=== PATIENT | female | born 1970 ===

== ENCOUNTER 2017-01-04 16:36 | Emergency (ER) | payer SELFPAY ==
[2017-01-04 17:04] VITALS: RESP 18; TEMP 97.7; O2SAT 99
[2017-01-04] MEDS ORDERED: Dexamethasone 4 mg/1 ml IM STA (17:53)
[2017-01-04] MEDS ORDERED: Dexamethasone 4 mg/1 ml ONE (18:09)
--- NOTE | 2017-01-04 19:27 | C.PDOC ---
History Of Present Illness 46 yr old female presents to the ER stating for the past 3 days she has had swelling and pain to the bilateral hands and knees. Patient reports of a area of swelling to the left thigh with rash, but the rash has now resolved now. 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 Patient denies fever, chest pain, SOB, back pain, neck pain, weakness or numbness. Time Seen by Provider: 01/04/17 17:16 Chief Complaint (Nursing): Abnormal Skin Integrity History Per: Patient History/Exam Limitations: no limitations Onset/Duration Of Symptoms: Days (3) Past Medical History Reviewed: Historical Data, Nursing Documentation, Vital Signs Vital Signs: Last Vital Signs Temp 97.7 F 01/04/17 16:58 Pulse 75 01/04/17 19:54 Resp 18 01/04/17 19:54 BP 124/75 01/04/17 19:54 Pulse Ox 99 01/04/17 22:17 Surgical History: Appendectomy Family History: States: No Known Family Hx - Social History Hx Alcohol Use: No Hx Substance Use: No - Immunization History Hx Tetanus Toxoid Vaccination: No Hx Influenza Vaccination: No Hx Pneumococcal Vaccination: No Review Of Systems Except As Marked, All Systems Reviewed And Found Negative. Constitutional: Negative for: Fever Cardiovascular: Negative for: Chest Pain Respiratory: Negative for: Shortness of Breath Musculoskeletal: Positive for: Other ((+) Bilateral knees and hand swelling and pain). Negative for: Back Pain Neurological: Negative for: Weakness, Numbness Physical Exam - Physical Exam Appears: Non-toxic, No Acute Distress Skin: Warm, Dry, No Rash Head: Atraumatic, Normacephalic Oral Mucosa: Moist Respiratory: Normal Breath Sounds, No Rales, No Rhonchi, No Stridor, No Wheezing Gastrointestinal/Abdominal: Normal Exam, Soft, No Tenderness, No Guarding, No Rebound Extremity: Normal ROM, Other ((+) Swelling in the bilateral MCP joints. Mild swelling to the bilateral knees.) Neurological/Psych: Oriented x3, Normal Speech, Normal Motor, Normal Sensation Gait: Steady ED Course And Treatment O2 Sat by Pulse Oximetry: 99 (RA) Pulse Ox Interpretation: Normal Medical Decision Making Medical Decision Making: PLAN: * Decadron IM * Toradol IM On re-exam, the patient reports improvement of symptoms. Lungs are CTA, heart is RRR, abdomen is soft, non-tender, and patient is tolerating PO well.. Ambulatory in the ED with steady gait. Follow up with the medical doctor within 1-2 days. Return if worsened. Disposition - Disposition Referrals: [facility] [Outside] [facility] [Outside] Disposition: HOME/ ROUTINE Disposition Time: 19:27 Condition: GOOD Additional Instructions: THIS COULD BE LYME DISEASE. FOLLOW UP WITH THE CLINIC FOR TESTING. ANTIBIOTICS FOR LYMES DISEASE WAS INITIATED. Follow up with the medical doctor within 1-2 days. Return if worsened. 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 - Scribe Statement The provider has reviewed the documentation as recorded by the Scribe Tracy Couch All medical record entries made by the Shaeibshahnaz were at my direction and personally dictated by me. I have reviewed the chart and agree that the record accurately reflects my personal performance of the history, physical exam, medical decision making, and the department course for this patient. I have also personally directed, reviewed, and agree with the discharge instructions and disposition.
[2017-01-04 19:58] VITALS: BP 124/75; PULSE 75
== END 2017-01-04 19:57 | disposition home or self-care (01) ==
LOC: C.ER 16:36
DX: M13.842 Other specified arthritis, left hand (principal); M13.841 Other specified arthritis, right hand; M13.862 Other specified arthritis, left knee; M13.861 Other specified arthritis, right knee; M25.442 Effusion, left hand; M25.441 Effusion, right hand; M25.462 Effusion, left knee; M25.461 Effusion, right knee; A69.20 Lyme disease, unspecified
CPT/HCPCS: 96372; 99283; J1100; J1885

== ENCOUNTER 2017-10-08 09:36 | Emergency (ER) | payer OTHER ==
[2017-10-08 09:37] VITALS: BMI 29.9
[2017-10-08 09:44] VITALS: TEMP 98.7; O2SAT 98
[2017-10-08] MEDS ORDERED: Dexamethasone 4 mg/1 ml IM STA (10:33)
--- NOTE | 2017-10-08 10:58 | C.PDOC ---
History Of Present Illness 46 year old female, with history of arthritis, presents to the emergency department with complaints of pain and swelling on her right arm for the past year. Patient has not been able to follow up with a specialist. She denies any weaknesses or numbness. Time Seen by Provider: 10/08/17 10:16 Chief Complaint (Nursing): Upper Extremity Problem/Injury History Per: Patient History/Exam Limitations: no limitations Onset/Duration Of Symptoms: Days Current Symptoms Are (Timing): Still Present Past Medical History Reviewed: Historical Data, Nursing Documentation, Vital Signs Vital Signs: Last Vital Signs Temp 98.7 F 10/08/17 09:40 Pulse 60 10/08/17 09:40 Resp 18 10/08/17 09:40 BP 163/78 H 10/08/17 09:40 Pulse Ox 98 10/08/17 11:15 Surgical History: Appendectomy Family History: States: No Known Family Hx - Social History Hx Alcohol Use: No Hx Substance Use: No - Immunization History Hx Tetanus Toxoid Vaccination: No Hx Influenza Vaccination: No Hx Pneumococcal Vaccination: No Review Of Systems Except As Marked, All Systems Reviewed And Found Negative. Constitutional: Negative for: Fever, Chills Gastrointestinal: Negative for: Nausea, Vomiting Musculoskeletal: Positive for: Arm Pain (and swelling) Neurological: Negative for: Weakness, Numbness Physical Exam - Physical Exam Appears: Non-toxic, No Acute Distress Skin: Warm, Dry, No Rash Head: Atraumatic, Normacephalic Eye(s): bilateral: Normal Inspection Oral Mucosa: Moist Neck: Normal ROM, No Midline Cervical Tenderness, No Paracervical Tenderness, Supple Cardiovascular: Rhythm Regular, No Friction Rub, No Murmur Respiratory: Normal Breath Sounds, No Rhonchi, No Wheezing Extremity: Tenderness (to posterior R elbow), Capillary Refill (< 2 sec), No Deformity, Swelling (in posterior R elbow, and the 2nd, 3rd, and 4th MCP joints) Pulses: Right Radial: Normal Neurological/Psych: Oriented x3, Normal Speech ED Course And Treatment O2 Sat by Pulse Oximetry: 98 (RA) Pulse Ox Interpretation: Normal Medical Decision Making Medical Decision Making: Plan: -Motrin -Toradol -Decadron injection On re-exam, the patient reports improvement of symptoms. Ambulatory in the Ed with steady gait. Patient was instructed to follow up with the medical doctor/ clinic within 1-2 days. return if worsened. Disposition - Disposition Referrals: Calvin Blackwell MD [Staff Provider] - [facility] [Outside] Disposition: HOME/ ROUTINE Disposition Time: 11:19 Condition: GOOD Additional Instructions: follow up with the medical doctor/clinic within 1-2 days. return if worsened. 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 - Scribe Statement The provider has reviewed the documentation as recorded by the Scribshahnaz Min All medical record entries made by the Shaeibshahnaz were at my direction and personally dictated by me. I have reviewed the chart and agree that the record accurately reflects my personal performance of the history, physical exam, medical decision making, and the department course for this patient. I have also personally directed, reviewed, and agree with the discharge instructions and disposition.
[2017-10-08 11:28] VITALS: BP 156/84; PULSE 78; RESP 16
== END 2017-10-08 11:27 | disposition home or self-care (01) ==
LOC: C.ER 09:36
DX: M19.90 Unspecified osteoarthritis, unspecified site (principal); M79.89 Other specified soft tissue disorders
CPT/HCPCS: 96372; 99283; J1100; J1885

== ENCOUNTER 2018-03-15 17:04 | Emergency (ER) | payer OTHER ==
[2018-03-15 17:05] VITALS: BMI 29.9
[2018-03-15 17:18] VITALS: BP 118/75; PULSE 60; TEMP 98.1; O2SAT 95
--- NOTE | 2018-03-15 17:50 | C.PDOC ---
History Of Present Illness 47 y/o female presents to the ED for evaluation of intermittent headache and left-sided upper back pain for 2 weeks. Also reports having bilateral wrist and forearm pain for the last year. Patient additionally feels like her face has been swollen for the last 2 weeks with intermittent itchy rash. She describes headache as intermittent frontal left-sided, dull, with gradual onset. Has had similar headaches in the past. Patient was seen here for similar complaints in the past, and had improvement with Toradol and steroids. Has appointment with PMD in 5 days. 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 Otherwise she denies any numbness, weakness, paresthesias, visual changes, dizziness, cough, chest pain, palpitations, leg swelling, or SOB. Time Seen by Provider: 03/15/18 17:49 Chief Complaint (Nursing): Headache History Per: Patient History/Exam Limitations: no limitations Onset/Duration Of Symptoms: Intermittent Episodes Current Symptoms Are (Timing): Still Present Past Medical History Reviewed: Historical Data, Nursing Documentation, Vital Signs Vital Signs: Last Vital Signs Temp 98.1 F 03/15/18 17:13 Pulse 60 03/15/18 17:13 Resp 18 03/15/18 17:13 BP 118/75 03/15/18 17:13 Pulse Ox 95 03/15/18 17:13 Surgical History: Appendectomy Family History: States: Unknown Family Hx - Social History Hx Tobacco Use: Yes Hx Alcohol Use: No Hx Substance Use: No - Immunization History Hx Tetanus Toxoid Vaccination: No Hx Influenza Vaccination: No Hx Pneumococcal Vaccination: No Review Of Systems Except As Marked, All Systems Reviewed And Found Negative. Constitutional: Negative for: Fever, Chills Eyes: Negative for: Vision Change ENT: Negative for: Nose Congestion, Throat Pain Cardiovascular: Negative for: Chest Pain, Palpitations, Light Headedness Respiratory: Negative for: Cough, Shortness of Breath Gastrointestinal: Negative for: Nausea, Vomiting, Abdominal Pain, Diarrhea Genitourinary: Negative for: Dysuria, Frequency Musculoskeletal: Positive for: Arm Pain (bilateral wrists and forearm pain), Back Pain (left upper) Skin: Positive for: Rash Neurological: Positive for: Headache (left-sided). Negative for: Weakness, Numbness, Dizziness Physical Exam - Physical Exam Appears: Well, Non-toxic, No Acute Distress Skin: Warm, Dry, No Rash Head: Atraumatic, Normacephalic, No Swelling Eye(s): bilateral: Normal Inspection, PERRL, EOMI Ear(s): Bilateral: Normal Nose: Normal Oral Mucosa: Moist Neck: Normal ROM, Trachea Midline, No Midline Cervical Tenderness, Paracervical Tenderness (left-sided paracervical tenderness with mild spasm), Supple, No Other (no meningeal signs) Chest: Symmetrical Cardiovascular: Rhythm Regular Respiratory: Normal Breath Sounds, No Accessory Muscle Use Gastrointestinal/Abdominal: Soft, No Tenderness Back: No Vertebral Tenderness, Muscle Spasm (to left upper trapezius), Paraspinal Tenderness (left upper trpezius) Extremity: Normal ROM, Capillary Refill (<2s) Extremity: Bilateral: Atraumatic (with no swelling or point tenderness to wrists or arms), Normal Color And Temperature, Normal ROM (with FROM of bilateral upper extremities) Pulses: Left Radial: Normal, Right Radial: Normal Neurological/Psych: Oriented x3, Normal Speech, Normal Cognition, Normal Cranial Nerves, Normal Motor, Normal Sensation, Other (No focal deficits) Gait: Steady ED Course And Treatment O2 Sat by Pulse Oximetry: 95 (RA) Pulse Ox Interpretation: Normal Medical Decision Making Medical Decision Making: Plan: - Benadryl 25 mg PO - Toradol 60 mg IM - Prednisone 60 mg PO On reassessment, patient reports complete resolution of headache after medications given. Patient remains AAOx3, afebrile, in no acute distress and is stable for discharge home. Instructed to followup with primary doctor within 1-2 days. Diagnostic testing results and plan of care discussed with patient. Strict instructions given regarding prescription use, importance of followup, and signs/symptoms to return to ER including fever, chills, difficulty breathing, or any other new/worsening symptoms. Pt verbalized understanding of discussion. Patient is A&Ox3, ambulating with steady gait, with vital signs stable for discharge. Disposition - Disposition Referrals: Gogo Fgiueroa MD [Staff Provider] - Disposition: HOME/ ROUTINE Disposition Time: 20:00 Condition: IMPROVED Additional Instructions: Т[place]яна prednisona 2 tabletas diarias samuel 4 salinas. [place] naproxeno diariamente segn sea necesario para el dolor. [place], no actividad vigorosa. Aumentar los fluidos Seguimiento con neurologa dentro de 2 salinas para cefalea. Seguimiento con mdico primario segn lo programado. 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 - Scribe Statement The provider has reviewed the documentation as recorded by the Scribe Lashell Morse All medical record entries made by the Scribe were at my direction and personally dictated by me. I have reviewed the chart and agree that the record accurately reflects my personal performance of the history, physical exam, medical decision making, and the department course for this patient. I have also personally directed, reviewed, and agree with the discharge instructions and disposition.
[2018-03-15 20:06] VITALS: RESP 20
== END 2018-03-15 20:05 | disposition home or self-care (01) ==
LOC: C.ER 17:04
DX: R51 Headache (principal); M62.838 Other muscle spasm; M25.40 Effusion, unspecified joint; R52 Pain, unspecified; Z72.0 Tobacco use
CPT/HCPCS: 96372; 99285; J1885

== ENCOUNTER 2018-03-25 13:25 | Outpatient (CLI) | payer OTHER | END 2018-03-25 13:26 | disposition home or self-care (01) | LOC: C.MAMMO 13:25 | DX: Z12.31 Encounter for screening mammogram for malignant neoplasm of breast (principal) ==